=== PATIENT | female | born 1985 | race African-American/Black ===

== ENCOUNTER 2019-09-28 09:26 | Emergency (ER) | payer OTHER ==
[~2019-09-28] VITALS: Ht 175.3 cm; Wt 90.9 kg
[~2019-09-28 09:26] MED LIST: NOCURR
[2019-09-28 12:34] VITALS: BP 115/75
== END 2019-09-28 12:35 | disposition home or self-care (01) ==
LOC: EMS 09:26
DX: T78.1XXA Other adverse food reactions, not elsewhere classified, initial encounter (principal); X58.XXXA Exposure to other specified factors, initial encounter